=== PATIENT | female | born 1960 | race Caucasian/White ===

== ENCOUNTER 2018-08-19 16:32 | Inpatient (IN) | payer OTHER ==
[~2018-08-19] VITALS: Ht 152.4 cm; Wt 57.6 kg
[2018-08-19] VITALS (7 sets, daily range): BP systolic 133–174; BP diastolic 65–89
[2018-08-19] MEDS ORDERED: SITA25 PO (16:43)
[2018-08-19] MEDS ORDERED: FERR-89 PO (16:43)
[2018-08-19] MEDS ORDERED: BRIM15DR8 OU (16:43)
[2018-08-19] MEDS ORDERED: TIMO10DR28 OU (16:43)
[2018-08-19] MEDS ORDERED: BUME1TAB17 PO (16:43)
[2018-08-19] MEDS ORDERED: TOBRDOS OU (16:43)
[2018-08-19] MEDS ORDERED: LATA2.5D2 OU (16:43)
[2018-08-19] MEDS ORDERED: LOSA50TA64 PO (16:43)
[2018-08-19 17:27] LABS: BASOPHILS % (AUTO) 1.2 % (0.0-2.0); EOSINOPHILS % (AUTO) 0.4 % (1.0-6.0); HEMATOCRIT 21.1 % (36-46); LYMPHOCYTES # (AUTO) 0.3 K/uL (1.0-4.8); LYMPHOCYTES % (AUTO) 5.5 % (22.0-44.0); MEAN CORPUSCULAR HEMOGLOBIN 30.4 pg (26.0-34.0); MEAN CORPUSCULAR HGB CONC 33.3 G/dL (31.0-37.0); MEAN CORPUSCULAR VOLUME 91 fL (80-100); MONOCYTES # (AUTO) 0.4 K/uL (0.1-1.0); MONOCYTES % (AUTO) 6.9 % (2.0-9.0); NEUTROPHILS # (AUTO) 5.2 K/uL (1.8-7.7); PLATELET COUNT (AUTO) 215 K/uL (150-450); RED BLOOD CELL COUNT(AUTO) 2.32 MIL/uL (4.00-5.20); RED CELL DISTRIBUTION WIDTH 14.9 % (11.5-14.5)
[2018-08-19 17:47] LABS: ALBUMIN 2.5 g/dL (3.4-5.0); BILIRUBIN,TOTAL 0.3 mg/dL (0.1-1.0); CALCIUM, TOTAL 7.9 mg/dL (8.8-10.5); CREATININE 4.09 mg/dL (0.60-1.30); POTASSIUM 5.1 mmol/L (3.5-5.1)
[2018-08-19] MEDS ORDERED: ASPIRIN 81 MG CHEWABLE TABLET PO ONE (18:15)
[2018-08-19] MEDS ORDERED: HydrALAZINE HCL 20 MG/ML VIAL IVP ONE (18:15)
[2018-08-19] MEDS ORDERED: NITROGLYCERIN 2% (1 GM=INCH) PACKET TP ONE (18:15)
[2018-08-19] MEDS ORDERED: 0.9% SODIUM CHLORIDE 10 ML SYRINGE IVP PRN (19:00)
[2018-08-19] MEDS ORDERED: ACETAMINOPHEN 325 MG TABLET PO PRN (19:00)
[2018-08-19] MEDS ORDERED: ONDANSETRON HCL 4 MG/2 ML VIAL IVP PRN (19:00)
[2018-08-19] MEDS ORDERED: OxyCODONE HCL/ACETAMINOPHEN 5-325 MG TABLET PO PRN (19:45)
[2018-08-19] MEDS ORDERED: ALBUTEROL SULFATE 2.5 MG/0.5 ML NEB SOLUTION NEB PRN (19:45)
[2018-08-19] MEDS ORDERED: MORPHINE SULFATE 4 MG/ML SYRINGE IVP PRN (19:45)
[2018-08-19] MEDS ORDERED: ZOLPIDEM TARTRATE 5 MG TABLET PO PRN (19:45)
[2018-08-19] MEDS ORDERED: IPRATROPIUM BROMIDE 0.5 MG/2.5 ML NEB SOLUTION NEB PRN (19:45)
[2018-08-19] MEDS ORDERED: BISACODYL 10 MG RECTAL RECTAL SUPPOSITORY PR PRN (19:45)
[2018-08-19] MEDS: HEPARIN SODIUM,PORCINE 5,000 UNITS/ML VIAL SQ SCH (21:00)
[2018-08-19] MEDS: BRIMONIDINE TARTRATE 0.2% 5 ML OPHTHALMIC SOLUTION OU SCH (21:00)
[2018-08-19] MEDS: BUMETANIDE 1 MG TABLET PO SCH (21:15)
[2018-08-19] MEDS ORDERED: SODIUM CHLORIDE 0.9% 250 ML IV ONE (21:20)
[2018-08-19] MEDS: NITROGLYCERIN 2% (1 GM=INCH) PACKET TP SCH (23:22)
[2018-08-20] VITALS (9 sets, daily range): BP systolic 155–172; BP diastolic 74–97
[2018-08-20 06:51] LABS: BASOPHILS % (AUTO) 0.8 % (0.0-2.0); EOSINOPHILS % (AUTO) 0.6 % (1.0-6.0); HEMATOCRIT 25.2 % (36-46); HEMOGLOBIN 8.5 g/dL (12.0-16.0); LYMPHOCYTES # (AUTO) 0.4 K/uL (1.0-4.8); LYMPHOCYTES % (AUTO) 6.7 % (22.0-44.0); MEAN CORPUSCULAR HEMOGLOBIN 31.3 pg (26.0-34.0); MEAN CORPUSCULAR HGB CONC 33.7 G/dL (31.0-37.0); MEAN CORPUSCULAR VOLUME 93 fL (80-100); MONOCYTES # (AUTO) 0.4 K/uL (0.1-1.0); MONOCYTES % (AUTO) 6.2 % (2.0-9.0); NEUTROPHILS # (AUTO) 5.4 K/uL (1.8-7.7); PLATELET COUNT (AUTO) 204 K/uL (150-450); RED BLOOD CELL COUNT(AUTO) 2.71 MIL/uL (4.00-5.20); RED CELL DISTRIBUTION WIDTH 14.7 % (11.5-14.5)
[2018-08-20] MEDS: NITROGLYCERIN 2% (1 GM=INCH) PACKET TP SCH ×3 (06:57→18:00)
[2018-08-20 07:02] LABS: PROTHROMBIN TIME 10.4 SEC (9.4-11.6)
[2018-08-20 07:10] LABS: NEUTROPHILS % (AUTO) 85.7 % (40.0-70.0)
[2018-08-20 07:22] LABS: HEMOGLOBIN A1C 5.5 % (4.5-6.2)
[2018-08-20 07:24] LABS: ALBUMIN 2.7 g/dL (3.4-5.0); BILIRUBIN,TOTAL 0.4 mg/dL (0.1-1.0); CREATININE 4.19 mg/dL (0.60-1.30); MAGNESIUM 2.6 mg/dL (1.80-2.40); PHOSPHORUS 6.4 mg/dL (2.5-4.9); POTASSIUM 4.8 mmol/L (3.5-5.1)
[2018-08-20] MEDS ORDERED: FERROUS SULFATE 325 MG EC TABLET PO SCH (08:00)
[2018-08-20] MEDS: LATANOPROST 0.005% 2.5 ML OPHTHALMIC SOLUTION OU SCH (08:01)
[2018-08-20] MEDS: DORZOLAMIDE/TIMOLOL 2-0.5% [22.3-6.8MG/ML] 10 ML OPHTHALMIC SOLUTION OU SCH (08:01)
[2018-08-20] MEDS: LOSARTAN POTASSIUM 50 MG TABLET PO SCH (08:03)
[2018-08-20] MEDS: SitaGLIPtin PHOSPHATE 25 MG TABLET PO SCH (08:03)
[2018-08-20] MEDS: BUMETANIDE 1 MG TABLET PO SCH ×2 (08:03→20:53)
[2018-08-20] MEDS: PANTOPRAZOLE SODIUM 40 MG DR TABLET PO SCH (08:03)
[2018-08-20 08:05] LABS: APPEARANCE,URINE CLEAR (CLEAR); BILIRUBIN,URINE NEGATIVE (NEGATIVE); GLUCOSE, URINE (UA) 250 mg/dL (NEGATIVE); KETONES,URINE NEGATIVE (NEGATIVE); LEUKOCYTE ESTERASE ,URINE NEGATIVE (NEGATIVE); NITRATE,URINE NEGATIVE (NEGATIVE); OCCULT BLOOD,URINE MODERATE (NEGATIVE); PROTEIN,URINE SEE CONFIRM (NEGATIVE); UROBILINOGEN,URINE 0.2 mg/dL (<=1.0)
[2018-08-20] MEDS: HEPARIN SODIUM,PORCINE 5,000 UNITS/ML VIAL SQ SCH (08:07)
[2018-08-20 08:26] LABS: SULFOSALICYLIC ACID,URINE 3+ (Negative)
[2018-08-20 08:28] LABS: BACTERIA,URINE None Seen /HPF (None Seen); SQUAMOUS EPITHELIAL CELL,UR Few /LPF (None Seen)
[2018-08-20] MEDS: BRIMONIDINE TARTRATE 0.2% 5 ML OPHTHALMIC SOLUTION OU SCH ×3 (09:00→20:34)
[2018-08-20] MEDS ORDERED: LIDOCAINE/PF 1% 30 ML VIAL ONE (12:06)
[2018-08-20] MEDS ORDERED: HEPARIN SODIUM,PORCINE 1,000 UNITS/ML 10 ML VIAL ONE (12:06)
[2018-08-20] MEDS ORDERED: HEPARIN SODIUM 1000 UNITS/NS 500 ML ONE (12:07)
[2018-08-20] MEDS ORDERED: FentaNYL CITRATE-PF 100 MCG/2 ML VIAL ONE (13:30)
[2018-08-20] MEDS ORDERED: NALOXONE HCL 0.4 MG/ML VIAL ONE (13:30)
[2018-08-20] MEDS ORDERED: MIDAZOLAM HCL 2 MG/2 ML VIAL ONE (13:30)
[2018-08-20] MEDS ORDERED: FLUMAZENIL 0.1 MG/ML 5 ML VIAL IVP ONE (13:31)
[2018-08-20] MEDS ORDERED: MIDAZOLAM HCL 2 MG/2 ML VIAL IVP ONE (14:22)
[2018-08-20] MEDS ORDERED: FentaNYL CITRATE-PF 100 MCG/2 ML VIAL IVP ONE (14:22)
[2018-08-20] MEDS ORDERED: CeFAZolin 1 GM/DEXTROSE 50 ML IV ONE (17:45)
[2018-08-20] MEDS ORDERED: HydrALAZINE HCL 20 MG/ML VIAL IVP ONE (18:15)
[2018-08-20] MEDS: ONDANSETRON HCL 4 MG/2 ML VIAL IVP PRN (19:51)
[2018-08-20] MEDS ORDERED: SODIUM CHLORIDE 0.9% 250 ML IV ONE (19:58)
[2018-08-20] MEDS: TOBRAMYCIN/DEXAMETHASONE 5 ML OPHTHALMIC SUSPENSION OS SCH (20:34)
[2018-08-21] VITALS (8 sets, daily range): BP systolic 105–193; BP diastolic 57–101
[2018-08-21] MEDS: ACETAMINOPHEN 325 MG TABLET PO PRN (00:12)
[2018-08-21] MEDS: NITROGLYCERIN 2% (1 GM=INCH) PACKET TP SCH ×4 (00:12→17:34)
[2018-08-21] MEDS ORDERED: SODIUM CHLORIDE 0.9% 1,000 ML IV ONE (08:53)
[2018-08-21] MEDS: LOSARTAN POTASSIUM 50 MG TABLET PO SCH (10:52)
[2018-08-21] MEDS: BUMETANIDE 1 MG TABLET PO SCH ×2 (10:53→20:29)
[2018-08-21] MEDS: PANTOPRAZOLE SODIUM 40 MG DR TABLET PO SCH (11:39)
[2018-08-21] MEDS: EPOETIN ALFA 10,000 UNITS/ML VIAL SQ SCH (11:39)
[2018-08-21] MEDS: ONDANSETRON HCL 4 MG/2 ML VIAL IVP PRN (11:39)
[2018-08-21] MEDS: BRIMONIDINE TARTRATE 0.2% 5 ML OPHTHALMIC SOLUTION OU SCH ×3 (11:39→20:29)
[2018-08-21] MEDS: LATANOPROST 0.005% 2.5 ML OPHTHALMIC SOLUTION OU SCH (11:40)
[2018-08-21] MEDS: DORZOLAMIDE/TIMOLOL 2-0.5% [22.3-6.8MG/ML] 10 ML OPHTHALMIC SOLUTION OU SCH (11:40)
[2018-08-21] MEDS: SitaGLIPtin PHOSPHATE 25 MG TABLET PO SCH (11:58)
[2018-08-21] MEDS ORDERED: HEPARIN SODIUM,PORCINE 1,000 UNITS/ML VIAL IVP ONE ×2 (12:01→17:28)
[2018-08-21] MEDS: HydrALAZINE HCL 20 MG/ML VIAL IVP PRN (17:34)
[2018-08-21 17:39] LABS: CREATININE,URINE 53.3 mg/dL (30.0-125.0)
[2018-08-21 18:00] LABS: CREATININE,SERUM FOR CRCL 4.19 mg/dL (0.60-1.30)
[2018-08-21] MEDS: TOBRAMYCIN/DEXAMETHASONE 5 ML OPHTHALMIC SUSPENSION OS SCH (20:29)
[2018-08-22] VITALS (7 sets, daily range): BP systolic 110–173; BP diastolic 55–97
[2018-08-22] MEDS: NITROGLYCERIN 2% (1 GM=INCH) PACKET TP SCH ×5 (00:44→23:48)
[2018-08-22 06:17] LABS: BASOPHILS % (AUTO) 0.6 % (0.0-2.0); EOSINOPHILS % (AUTO) 0.1 % (1.0-6.0); HEMATOCRIT 25.1 % (36-46); HEMOGLOBIN 8.7 g/dL (12.0-16.0); LYMPHOCYTES # (AUTO) 0.4 K/uL (1.0-4.8); LYMPHOCYTES % (AUTO) 5.4 % (22.0-44.0); MEAN CORPUSCULAR HEMOGLOBIN 31.4 pg (26.0-34.0); MEAN CORPUSCULAR HGB CONC 34.5 G/dL (31.0-37.0); MEAN CORPUSCULAR VOLUME 91 fL (80-100); MONOCYTES # (AUTO) 0.7 K/uL (0.1-1.0); MONOCYTES % (AUTO) 9.4 % (2.0-9.0); NEUTROPHILS # (AUTO) 6.6 K/uL (1.8-7.7); NEUTROPHILS % (AUTO) 84.5 % (40.0-70.0); PLATELET COUNT (AUTO) 213 K/uL (150-450); RED BLOOD CELL COUNT(AUTO) 2.76 MIL/uL (4.00-5.20); RED CELL DISTRIBUTION WIDTH 14.9 % (11.5-14.5)
[2018-08-22 06:48] LABS: CALCIUM, TOTAL 7.6 mg/dL (8.8-10.5); CREATININE 2.69 mg/dL (0.60-1.30); POTASSIUM 4.1 mmol/L (3.5-5.1)
[2018-08-22] MEDS: BRIMONIDINE TARTRATE 0.2% 5 ML OPHTHALMIC SOLUTION OU SCH ×3 (09:07→21:49)
[2018-08-22] MEDS: LOSARTAN POTASSIUM 50 MG TABLET PO SCH ×2 (09:08→21:50)
[2018-08-22] MEDS: DORZOLAMIDE/TIMOLOL 2-0.5% [22.3-6.8MG/ML] 10 ML OPHTHALMIC SOLUTION OU SCH (09:08)
[2018-08-22] MEDS: SitaGLIPtin PHOSPHATE 25 MG TABLET PO SCH (09:08)
[2018-08-22] MEDS: PANTOPRAZOLE SODIUM 40 MG DR TABLET PO SCH (09:08)
[2018-08-22] MEDS: LATANOPROST 0.005% 2.5 ML OPHTHALMIC SOLUTION OU SCH (09:08)
[2018-08-22] MEDS: BUMETANIDE 1 MG TABLET PO SCH ×2 (09:08→21:49)
[2018-08-22] MEDS: MAGNESIUM HYDROXIDE SUSPENSION 30 ML UDCUP PO PRN (11:14)
[2018-08-22] MEDS: HydrALAZINE HCL 20 MG/ML VIAL IVP PRN (15:49)
[2018-08-22] MEDS: TOBRAMYCIN/DEXAMETHASONE 5 ML OPHTHALMIC SUSPENSION OS SCH (21:49)
[2018-08-22] MEDS: NYSTATIN 15 GM POWDER BOTTLE TP SCH (21:49)
[2018-08-23] VITALS (7 sets, daily range): BP systolic 108–177; BP diastolic 51–77
[2018-08-23] MEDS: HydrALAZINE HCL 20 MG/ML VIAL IVP PRN (05:18)
[2018-08-23] MEDS: NITROGLYCERIN 2% (1 GM=INCH) PACKET TP SCH ×4 (05:41→23:42)
[2018-08-23] MEDS ORDERED: SODIUM CHLORIDE 0.9% 2,000 ML IV ONE (06:29)
[2018-08-23] MEDS: LOSARTAN POTASSIUM 50 MG TABLET PO SCH ×2 (07:52→20:52)
[2018-08-23] MEDS: SitaGLIPtin PHOSPHATE 25 MG TABLET PO SCH (10:36)
[2018-08-23] MEDS: BUMETANIDE 1 MG TABLET PO SCH ×2 (10:36→20:51)
[2018-08-23] MEDS: PANTOPRAZOLE SODIUM 40 MG DR TABLET PO SCH (10:36)
[2018-08-23] MEDS: EPOETIN ALFA 10,000 UNITS/ML VIAL SQ SCH (10:36)
[2018-08-23] MEDS: BRIMONIDINE TARTRATE 0.2% 5 ML OPHTHALMIC SOLUTION OU SCH ×3 (10:37→20:51)
[2018-08-23] MEDS: NYSTATIN 15 GM POWDER BOTTLE TP SCH ×2 (10:38→20:51)
[2018-08-23] MEDS: DORZOLAMIDE/TIMOLOL 2-0.5% [22.3-6.8MG/ML] 10 ML OPHTHALMIC SOLUTION OU SCH (10:38)
[2018-08-23] MEDS: LATANOPROST 0.005% 2.5 ML OPHTHALMIC SOLUTION OU SCH (10:38)
[2018-08-23] MEDS: CALCIUM ACETATE 667 MG CAPSULE PO SCH ×2 (12:09→18:00)
[2018-08-23] MEDS ORDERED: HEPARIN SODIUM,PORCINE 1,000 UNITS/ML VIAL IVP ONE (12:41)
[2018-08-23] MEDS: TOBRAMYCIN/DEXAMETHASONE 5 ML OPHTHALMIC SUSPENSION OS SCH (20:51)
[2018-08-24 04:02] VITALS: BP 146/59
[2018-08-24 06:07] LABS: CALCIUM, TOTAL 7.8 mg/dL (8.8-10.5); CREATININE 2.51 mg/dL (0.60-1.30); PHOSPHORUS 3.1 mg/dL (2.5-4.9)
[2018-08-24] MEDS: NITROGLYCERIN 2% (1 GM=INCH) PACKET TP SCH ×4 (06:10→23:51)
[2018-08-24 06:13] LABS: POTASSIUM 4.7 mmol/L (3.5-5.1)
[2018-08-24 08:22] VITALS: BP 172/75
[2018-08-24] MEDS: CALCIUM ACETATE 667 MG CAPSULE PO SCH ×3 (08:34→17:51)
[2018-08-24] MEDS: LATANOPROST 0.005% 2.5 ML OPHTHALMIC SOLUTION OU SCH (08:35)
[2018-08-24] MEDS: BUMETANIDE 1 MG TABLET PO SCH (08:35)
[2018-08-24] MEDS: BRIMONIDINE TARTRATE 0.2% 5 ML OPHTHALMIC SOLUTION OU SCH ×3 (08:35→20:24)
[2018-08-24] MEDS: LOSARTAN POTASSIUM 50 MG TABLET PO SCH ×2 (08:35→20:25)
[2018-08-24] MEDS: NYSTATIN 15 GM POWDER BOTTLE TP SCH ×2 (08:35→20:27)
[2018-08-24] MEDS: SitaGLIPtin PHOSPHATE 25 MG TABLET PO SCH (08:35)
[2018-08-24] MEDS: PANTOPRAZOLE SODIUM 40 MG DR TABLET PO SCH (08:35)
[2018-08-24] MEDS: DORZOLAMIDE/TIMOLOL 2-0.5% [22.3-6.8MG/ML] 10 ML OPHTHALMIC SOLUTION OU SCH (08:36)
[2018-08-24] MEDS: AmLODIPine BESYLATE 5 MG TABLET PO SCH (12:09)
[2018-08-24 12:42] VITALS: BP 126/74
[2018-08-24 18:05] VITALS: BP 143/59
[2018-08-24 20:03] VITALS: BP 167/78
[2018-08-24] MEDS: TOBRAMYCIN/DEXAMETHASONE 5 ML OPHTHALMIC SUSPENSION OS SCH (20:25)
[2018-08-24 23:55] VITALS: BP 169/78
[2018-08-25] VITALS (7 sets, daily range): BP systolic 118–177; BP diastolic 54–79
[2018-08-25] MEDS: NITROGLYCERIN 2% (1 GM=INCH) PACKET TP SCH ×3 (05:13→18:00)
[2018-08-25 06:47] LABS: BASOPHILS % (AUTO) 0.7 % (0.0-2.0); EOSINOPHILS % (AUTO) 0.8 % (1.0-6.0); HEMATOCRIT 23.9 % (36-46); HEMOGLOBIN 8.3 g/dL (12.0-16.0); LYMPHOCYTES # (AUTO) 0.7 K/uL (1.0-4.8); LYMPHOCYTES % (AUTO) 10.1 % (22.0-44.0); MEAN CORPUSCULAR HGB CONC 34.9 G/dL (31.0-37.0); MEAN CORPUSCULAR VOLUME 92 fL (80-100); MONOCYTES # (AUTO) 0.6 K/uL (0.1-1.0); MONOCYTES % (AUTO) 8.6 % (2.0-9.0); NEUTROPHILS # (AUTO) 5.4 K/uL (1.8-7.7); NEUTROPHILS % (AUTO) 79.8 % (40.0-70.0); PLATELET COUNT (AUTO) 188 K/uL (150-450); RED CELL DISTRIBUTION WIDTH 14.4 % (11.5-14.5)
[2018-08-25 06:53] LABS: CALCIUM, TOTAL 7.9 mg/dL (8.8-10.5); CREATININE 3.05 mg/dL (0.60-1.30)
[2018-08-25] MEDS: CALCIUM ACETATE 667 MG CAPSULE PO SCH ×3 (08:00→20:05)
[2018-08-25] MEDS: SitaGLIPtin PHOSPHATE 25 MG TABLET PO SCH (09:00)
[2018-08-25] MEDS: DORZOLAMIDE/TIMOLOL 2-0.5% [22.3-6.8MG/ML] 10 ML OPHTHALMIC SOLUTION OU SCH (09:14)
[2018-08-25] MEDS: LATANOPROST 0.005% 2.5 ML OPHTHALMIC SOLUTION OU SCH (09:14)
[2018-08-25] MEDS: BRIMONIDINE TARTRATE 0.2% 5 ML OPHTHALMIC SOLUTION OU SCH ×3 (09:15→20:04)
[2018-08-25] MEDS: AmLODIPine BESYLATE 5 MG TABLET PO SCH (09:15)
[2018-08-25] MEDS: LOSARTAN POTASSIUM 50 MG TABLET PO SCH ×2 (09:15→20:16)
[2018-08-25] MEDS: VITAMIN B COMP/VIT C/FOLIC ACID CAPSULE PO SCH (09:16)
[2018-08-25] MEDS: PANTOPRAZOLE SODIUM 40 MG DR TABLET PO SCH (09:16)
[2018-08-25] MEDS: NYSTATIN 15 GM POWDER BOTTLE TP SCH ×2 (09:23→20:18)
[2018-08-25] MEDS ORDERED: LIDOCAINE/PF 1% 30 ML VIAL ONE (11:28)
[2018-08-25] MEDS ORDERED: SODIUM CHLORIDE 0.9% 250 ML IV ONE (11:28)
[2018-08-25] MEDS ORDERED: HEPARIN SODIUM,PORCINE 5,000 UNITS/ML VIAL ONE (11:28)
[2018-08-25] MEDS ORDERED: SODIUM CHLORIDE 0.9% 0 ML ONE (11:28)
[2018-08-25] MEDS ORDERED: SODIUM CHLORIDE 0.9% 1,000 ML IV ONE (13:10)
[2018-08-25] MEDS: SODIUM CHLORIDE 0.9% 1,000 ML IV SCH (14:39)
[2018-08-25] MEDS ORDERED: ACETAMINOPHEN 1000 MG/ISO-OSM 0 ML IV ONE (14:58)
[2018-08-25] MEDS ORDERED: BUPIVACAINE HCL/PF 0.25% 30 ML VIAL ONE (14:59)
[2018-08-25] MEDS: HydrALAZINE HCL 20 MG/ML VIAL IVP PRN (17:00)
[2018-08-25] MEDS: TOBRAMYCIN/DEXAMETHASONE 5 ML OPHTHALMIC SUSPENSION OS SCH (20:05)
[2018-08-26] VITALS (7 sets, daily range): BP systolic 118–161; BP diastolic 53–91
[2018-08-26] MEDS: NITROGLYCERIN 2% (1 GM=INCH) PACKET TP SCH ×4 (00:16→17:11)
[2018-08-26 06:41] LABS: BASOPHILS % (AUTO) 1.1 % (0.0-2.0); EOSINOPHILS % (AUTO) 0.2 % (1.0-6.0); HEMATOCRIT 26.3 % (36-46); HEMOGLOBIN 9.1 g/dL (12.0-16.0); LYMPHOCYTES # (AUTO) 0.9 K/uL (1.0-4.8); MEAN CORPUSCULAR HEMOGLOBIN 31.3 pg (26.0-34.0); MEAN CORPUSCULAR HGB CONC 34.5 G/dL (31.0-37.0); MEAN CORPUSCULAR VOLUME 91 fL (80-100); MONOCYTES # (AUTO) 0.6 K/uL (0.1-1.0); MONOCYTES % (AUTO) 8.7 % (2.0-9.0); NEUTROPHILS # (AUTO) 5.1 K/uL (1.8-7.7); PLATELET COUNT (AUTO) 242 K/uL (150-450); RED CELL DISTRIBUTION WIDTH 14.4 % (11.5-14.5)
[2018-08-26 06:53] LABS: % IRON SATURATION 23.3 % (22-44)
[2018-08-26 07:09] LABS: CREATININE 2.44 mg/dL (0.60-1.30); POTASSIUM 4.5 mmol/L (3.5-5.1)
[2018-08-26] MEDS: CALCIUM ACETATE 667 MG CAPSULE PO SCH ×3 (07:55→18:36)
[2018-08-26] MEDS: AmLODIPine BESYLATE 10 MG TABLET PO SCH (08:17)
[2018-08-26] MEDS: LOSARTAN POTASSIUM 50 MG TABLET PO SCH ×2 (08:18→20:35)
[2018-08-26] MEDS: PANTOPRAZOLE SODIUM 40 MG DR TABLET PO SCH (08:18)
[2018-08-26] MEDS: VITAMIN B COMP/VIT C/FOLIC ACID CAPSULE PO SCH (08:18)
[2018-08-26] MEDS: NYSTATIN 15 GM POWDER BOTTLE TP SCH ×2 (08:19→20:37)
[2018-08-26] MEDS: EPOETIN ALFA 10,000 UNITS/ML VIAL SQ SCH (08:19)
[2018-08-26] MEDS: DORZOLAMIDE/TIMOLOL 2-0.5% [22.3-6.8MG/ML] 10 ML OPHTHALMIC SOLUTION OU SCH (08:20)
[2018-08-26] MEDS: BRIMONIDINE TARTRATE 0.2% 5 ML OPHTHALMIC SOLUTION OU SCH ×3 (08:20→20:36)
[2018-08-26] MEDS: LATANOPROST 0.005% 2.5 ML OPHTHALMIC SOLUTION OU SCH (08:20)
[2018-08-26] MEDS ORDERED: SODIUM CHLORIDE 0.9% 0 ML IV ONE (08:59)
[2018-08-26] MEDS ORDERED: SODIUM CHLORIDE 0.9% 1,000 ML IV ONE (09:00)
[2018-08-26] MEDS ORDERED: BUMETANIDE 1 MG TABLET PO SCH (09:00)
[2018-08-26] MEDS ORDERED: SODIUM CHLORIDE 0.9% 0 ML ONE (10:58)
[2018-08-26] MEDS ORDERED: VANCOMYCIN HCL 1 GM/VIAL ONE (10:58)
[2018-08-26 13:55] LABS: GLUCOMETER DEV NAME(LOC) 5S 1N; GLUCOSE,POINT OF CARE 168 MG/DL (70-110)
[2018-08-26 13:55] LABS: GLUCOMETER DEV NAME(LOC) 5S 1N; GLUCOSE,POINT OF CARE 164 MG/DL (70-110)
[2018-08-26] MEDS: SODIUM CHLORIDE 0.9% 1,000 ML IV SCH (14:00)
[2018-08-26] MEDS: TOBRAMYCIN/DEXAMETHASONE 5 ML OPHTHALMIC SUSPENSION OS SCH (20:36)
[2018-08-26] MEDS: ACETAMINOPHEN 325 MG TABLET PO PRN (20:47)
[2018-08-27] MEDS: NITROGLYCERIN 2% (1 GM=INCH) PACKET TP SCH ×3 (00:30→13:34)
[2018-08-27 04:35] VITALS: BP 124/68
[2018-08-27] MEDS ORDERED: ONDANSETRON HCL 4 MG/2 ML VIAL IVP ONE (05:17)
[2018-08-27] MEDS ORDERED: PHENYLEPHRINE HCL 10 MG/ML VIAL IVP ONE (05:17)
[2018-08-27] MEDS ORDERED: LIDOCAINE/PF 2% 5 ML VIAL IM ONE (05:17)
[2018-08-27] MEDS ORDERED: KETAMINE HCL 50 MG/ML 10 ML VIAL IVP ONE (05:17)
[2018-08-27] MEDS ORDERED: MIDAZOLAM HCL 2 MG/2 ML VIAL IVP ONE (05:17)
[2018-08-27] MEDS ORDERED: NEOSTIGMINE METHYLSULFATE 1 MG/ML 10 ML VIAL IVP ONE (05:17)
[2018-08-27] MEDS ORDERED: FentaNYL CITRATE-PF 100 MCG/2 ML VIAL IVP ONE (05:17)
[2018-08-27] MEDS: MAGNESIUM HYDROXIDE SUSPENSION 30 ML UDCUP PO PRN (07:08)
[2018-08-27 07:30] VITALS: BP 135/62
[2018-08-27 07:45] LABS: CALCIUM, TOTAL 7.5 mg/dL (8.8-10.5); CREATININE 3.22 mg/dL (0.60-1.30); POTASSIUM 4.8 mmol/L (3.5-5.1)
[2018-08-27 07:54] LABS: BASOPHILS % (AUTO) 0.9 % (0.0-2.0); EOSINOPHILS % (AUTO) 0.5 % (1.0-6.0); HEMATOCRIT 23.8 % (36-46); HEMOGLOBIN 8.1 g/dL (12.0-16.0); LYMPHOCYTES # (AUTO) 0.9 K/uL (1.0-4.8); LYMPHOCYTES % (AUTO) 14.3 % (22.0-44.0); MEAN CORPUSCULAR HEMOGLOBIN 31.4 pg (26.0-34.0); MEAN CORPUSCULAR HGB CONC 34.1 G/dL (31.0-37.0); MEAN CORPUSCULAR VOLUME 92 fL (80-100); MONOCYTES # (AUTO) 0.7 K/uL (0.1-1.0); NEUTROPHILS # (AUTO) 4.8 K/uL (1.8-7.7); NEUTROPHILS % (AUTO) 73.3 % (40.0-70.0); PLATELET COUNT (AUTO) 198 K/uL (150-450); RED BLOOD CELL COUNT(AUTO) 2.58 MIL/uL (4.00-5.20); RED CELL DISTRIBUTION WIDTH 14.4 % (11.5-14.5)
[2018-08-27] MEDS: CALCIUM ACETATE 667 MG CAPSULE PO SCH ×2 (08:50→13:33)
[2018-08-27] MEDS: PANTOPRAZOLE SODIUM 40 MG DR TABLET PO SCH (08:50)
[2018-08-27] MEDS: VITAMIN B COMP/VIT C/FOLIC ACID CAPSULE PO SCH (08:51)
[2018-08-27] MEDS: DORZOLAMIDE/TIMOLOL 2-0.5% [22.3-6.8MG/ML] 10 ML OPHTHALMIC SOLUTION OU SCH (08:51)
[2018-08-27] MEDS: LATANOPROST 0.005% 2.5 ML OPHTHALMIC SOLUTION OU SCH (08:51)
[2018-08-27] MEDS: BRIMONIDINE TARTRATE 0.2% 5 ML OPHTHALMIC SOLUTION OU SCH ×2 (08:51→16:08)
[2018-08-27] MEDS: AmLODIPine BESYLATE 10 MG TABLET PO SCH (09:42)
[2018-08-27] MEDS: NYSTATIN 15 GM POWDER BOTTLE TP SCH (09:43)
[2018-08-27 11:38] VITALS: BP 148/56
[2018-08-27] MEDS ORDERED: HEPARIN SODIUM,PORCINE 1,000 UNITS/ML VIAL IVP ONE ×2 (12:00→17:44)
[2018-08-27] MEDS: LOSARTAN POTASSIUM 50 MG TABLET PO SCH (13:33)
[2018-08-27 15:24] VITALS: BP 122/70
[2018-08-27] MEDS ORDERED: AMLO-512 PO (15:28)
[2018-08-27] MEDS ORDERED: PHOSLOC PO (15:30)
[2018-08-27] MEDS ORDERED: FOLI1CAP2 PO (15:31)
[2018-08-27] MEDS ORDERED: LACTULOSE 20 GM/30 ML SOLUTION UDCUP ONE (15:58)
[2018-08-27] MEDS ORDERED: LACTULOSE 20 GM/30 ML SOLUTION UDCUP PO ONE (16:00)
== END 2018-08-27 17:05 | disposition home or self-care (01) | DRG 180 ==
LOC: EMS 16:33 → 5N 18:40
PROVIDERS: ADMIT Internal Medicine; ATTEND Internal Medicine
PROC: 30233N1 Transfusion of Nonautologous Red Blood Cells into Peripheral Vein, Percutaneous Approach (ICD-10-PCS; 2018-08-19)
PROC: 0JH63XZ Insertion of Tunneled Vascular Access Device into Chest Subcutaneous Tissue and Fascia, Percutaneous Approach (ICD-10-PCS; 2018-08-20)
PROC: 02HV33Z Insertion of Infusion Device into Superior Vena Cava, Percutaneous Approach (ICD-10-PCS; 2018-08-20)
PROC: B548ZZA Ultrasonography of Superior Vena Cava, Guidance (ICD-10-PCS; 2018-08-20)
PROC: 03180ZD Bypass Left Brachial Artery to Upper Arm Vein, Open Approach (ICD-10-PCS; principal; 2018-08-26 10:00)
PROC: 5A1D70Z Performance of Urinary Filtration, Intermittent, Less than 6 Hours Per Day (ICD-10-PCS; 2018-08-27)
DX: I13.2 Hypertensive heart and chronic kidney disease with heart failure and with stage 5 chronic kidney disease, or end stage renal disease (principal); E11.21 Type 2 diabetes mellitus with diabetic nephropathy; N18.6 End stage renal disease; E83.51 Hypocalcemia; I50.33 Acute on chronic diastolic (congestive) heart failure; D63.1 Anemia in chronic kidney disease; H40.9 Unspecified glaucoma; E11.22 Type 2 diabetes mellitus with diabetic chronic kidney disease; E11.319 Type 2 diabetes mellitus with unspecified diabetic retinopathy without macular edema; E11.65 Type 2 diabetes mellitus with hyperglycemia; E78.5 Hyperlipidemia, unspecified; N25.81 Secondary hyperparathyroidism of renal origin; N39.0 Urinary tract infection, site not specified; Z16.12 Extended spectrum beta lactamase (ESBL) resistance; Z79.84 Long term (current) use of oral hypoglycemic drugs; Z87.441 Personal history of nephrotic syndrome; Z91.19 Patient's noncompliance with other medical treatment and regimen; Z28.21 Immunization not carried out because of patient refusal; Z88.0 Allergy status to penicillin; Z79.899 Other long term (current) drug therapy; Z83.3 Family history of diabetes mellitus; Z98.49 Cataract extraction status, unspecified eye
CPT/HCPCS: 36245; 36561; 76000; 76937; 81050; 82575; 82728; 83036; 83540; 83550; 83735; 83970; 84100; 84156; 84300; 84540; 86850; 86900; 86901; 86920; 87086; 87340; 93005; 93970; 96374; G0378; J0131; J0360; J0690; J0885; J1644; J2250; J2310; J2370; J2405; J3010; J3370; J3490; J7030; J7050; P9016